=== PATIENT | male | born 1970 | race African-American/Black ===

== ENCOUNTER 2019-04-29 13:16 | Emergency (ER) | payer MEDICARE, MEDICAID ==
[~2019-04-29] VITALS: Ht 203.2 cm; Wt 139.7 kg
[~2019-04-29 13:16] MED LIST: GLYB2.5T8 PO; METF-372
[2019-04-29 16:43] LABS: Albumin 3.6 g/dL (3.4-5.0); Calcium 8.9 mg/dL (8.5-10.1); Potassium 3.9 mmol/L (3.5-5.1)
[2019-04-29 16:46] LABS: BUN/Creatinine Ratio 6.9; Bilirubin, Total 0.9 mg/dL (0.2-1.0); Total Protein 8.4 g/dL (6.4-8.2)
[2019-04-29 16:47] LABS: Basophils # (auto) 0.3 uL; Basophils % (auto) 4.8 % (0.0-2.0); Eosinophils # (auto) 0.4 uL; Eosinophils % (auto) 5.7 % (0.0-7.0); Hemoglobin 11.7 g/dL (13.5-17.5); Lymphocytes # (auto) 1.7 uL; Lymphocytes % (auto) 23.8 % (10.0-50.0); Mean Corpuscular Hemoglobin 27.5 pg (28.0-32.0); Mean Corpuscular Hgb Conc. 33.5 g/dL (32.0-36.0); Mean Corpuscular Volume 82.1 fL (80.0-100.0); Neutrophils # (auto) 3.5 uL; Neutrophils % (auto) 50.7 % (37.0-80.0); Nucleated Red Blood Cells % 1.1 %; Platelet Count (auto) 228 10^3/uL (140-450); Red Blood Cells 4.26 10^6/uL (4.5-5.90)
[2019-04-29 17:22] LABS: Red Cell Distribution Width 21.1 % (11.8-14.3)
[2019-04-30 00:46] LABS: Urine Bacteria FEW /hpf (None Seen); Urine Blood Negative /uL (Negative); Urine Mucus FEW (None Seen); Urine Specific Gravity 1.011 (1.001-1.035); Urine WBC <1 /hpf (0 - 3)
[2019-04-30 00:50] VITALS: BP 120/73
== END 2019-04-30 02:01 | disposition home or self-care (01) ==
LOC: ER 13:16
DX: E11.621 Type 2 diabetes mellitus with foot ulcer (principal); L03.115 Cellulitis of right lower limb; L02.611 Cutaneous abscess of right foot; E11.42 Type 2 diabetes mellitus with diabetic polyneuropathy; I10 Essential (primary) hypertension; J45.909 Unspecified asthma, uncomplicated; F17.210 Nicotine dependence, cigarettes, uncomplicated; Z90.49 Acquired absence of other specified parts of digestive tract
CPT/HCPCS: 36415; 73700; 80053; 81001; 82962; 83605; 85025; 87040; 87077; 87186; 87205